=== PATIENT | female | born 1990 | race Caucasian/White ===

== ENCOUNTER 2022-11-12 16:16 | Emergency (ER) | payer OTHER ==
[2022-11-12 16:26] VITALS: BP 107/64; PULSE 89; RESP 18; TEMP 98.6; BMI 25.8
[2022-11-12] MEDS ORDERED: SODIUM CHLORIDE 0.9% 500 ML INFUS.BAG IV ONE (16:52)
[2022-11-12] MEDS ORDERED: METOCLOPRAMIDE HCL INJECTION 10 MG/2 ML VIAL IVPUSH ONE (16:52)
[2022-11-12] MEDS ORDERED: ACETAMINOPHEN 1000 MG/100 ML BAG IVPB ONE (16:52)
[2022-11-12] MEDS ORDERED: METOCLOPRAMIDE HCL INJECTION 10 MG/2 ML VIAL ONE (17:23)
[2022-11-12] MEDS ORDERED: ACETAMINOPHEN INJECTION 100 ML IVPB ONE (17:24)
[2022-11-12 17:31] LABS: BASO % 0.4 % (0-2.0); EOS % 0.8 % (0-4.5); HEMATOCRIT 37.3 % (32.4-45.2); HEMOGLOBIN 12.5 GM/dL (10.7-15.3); LYMPH % 18.6 % (8-40); MCH 29.4 pg (25.7-33.7); MCHC 33.5 g/dl (32.0-36.0); MEAN CELL VOLUME 87.9 fl (80-96); MEAN PLT VOLUME 7.3 fl (7.5-11.1); MONO % 10.1 % (3.8-10.2); NEUT % 70.1 % (42.8-82.8); PLATELET COUNT 326 10^3/uL (134-434); RBC 4.24 M/mm3 (3.60-5.2); RDW 13.8 % (11.6-15.6); WHITE BLOOD COUNT 10.5 K/mm3 (4.0-10.0)
[2022-11-12 17:33] LABS: THROAT:GRP A STREP DETECTED (NOTDETECTED)
[2022-11-12 17:45] LABS: CALCIUM 8.7 mg/dL (8.5-10.1)
[2022-11-12 17:46] LABS: ALBUMIN 3.4 g/dl (3.4-5.0)
[2022-11-12 17:49] LABS: CREATININE 0.6 mg/dL (0.55-1.3)
[2022-11-12 17:51] LABS: BILIRUBIN,TOTAL 0.3 mg/dL (0.2-1); TOT PROT 6.9 g/dl (6.4-8.2)
[2022-11-12] MEDS ORDERED: AMOXICILLIN 500 MG CAPSULE (FP) PO ONE (17:52)
[2022-11-12] MEDS ORDERED: AMOXICILLIN 500 MG CAPSULE (FP) ONE (17:53)
== END 2022-11-12 18:27 | disposition home or self-care (01) ==
LOC: JER 16:16
PROC: 3E033NZ Introduction of Analgesics, Hypnotics, Sedatives into Peripheral Vein, Percutaneous Approach (ICD-10-PCS; principal; 2022-11-12)
PROC: 3E033GC Introduction of Other Therapeutic Substance into Peripheral Vein, Percutaneous Approach (ICD-10-PCS; 2022-11-12)
DX: R07.0 Pain in throat (principal); J02.0 Streptococcal pharyngitis; Z20.822 Contact with and (suspected) exposure to COVID-19
CPT/HCPCS: 0241U-QW; 36415; 80053; 84703; 85025; 87651; 96374; 96375; 99284-25

== ENCOUNTER 2023-04-23 18:55 | Emergency (ER) | payer OTHER ==
[2023-04-23 19:23] VITALS: BP 109/57; PULSE 80; RESP 20; TEMP 97.8; BMI 24.3
[2023-04-23] MEDS ORDERED: ACETAMINOPHEN 500 MG TABLET (FP) PO ONE (20:29)
[2023-04-23] MEDS ORDERED: KETOROLAC TROMETHAMINE 30 MG/1 ML VIAL IM ONE (20:29)
[2023-04-23] MEDS ORDERED: CYCLOBENZAPRINE HCL 10 MG TABLET (FP) PO ONE (20:29)
[2023-04-23] MEDS ORDERED: LIDOCAINE 4% PATCH TP ONE ×2 (20:29→20:36)
[2023-04-23] MEDS ORDERED: CYCLOBENZAPRINE HCL 10 MG TABLET (FP) ONE (20:37)
[2023-04-23] MEDS ORDERED: ACETAMINOPHEN 500 MG TABLET (FP) ONE (20:37)
[2023-04-23] MEDS ORDERED: KETOROLAC TROMETHAMINE 30 MG/1 ML VIAL ONE (20:37)
[2023-04-23] MEDS ORDERED: LIDOCAINE PATCH REMOVAL MC SCH (22:00)
== END 2023-04-23 21:38 | disposition home or self-care (01) ==
LOC: JERFT 18:55
PROC: 3E0233Z Introduction of Anti-inflammatory into Muscle, Percutaneous Approach (ICD-10-PCS; principal; 2023-04-23)
DX: M54.42 Lumbago with sciatica, left side (principal)
CPT/HCPCS: 99284-25